=== PATIENT | female | born 2000 | race Caucasian/White ===

== ENCOUNTER 2020-08-09 09:15 | Outpatient (CLI) | payer OTHER | END 2020-08-09 09:32 | disposition home or self-care (01) | LOC: NUCLEAR 09:15 | PROVIDERS: ATTEND General Practice | DX: E05.00 Thyrotoxicosis with diffuse goiter without thyrotoxic crisis or storm (principal) | CPT/HCPCS: 78012; A9531 ==

== ENCOUNTER 2020-08-10 09:56 | Outpatient (CLI) | payer OTHER | END 2020-08-10 10:22 | disposition home or self-care (01) | LOC: NUCLEAR 09:56 | PROVIDERS: ATTEND General Practice | DX: E05.00 Thyrotoxicosis with diffuse goiter without thyrotoxic crisis or storm (principal) | CPT/HCPCS: 78013; A9512 ==

== ENCOUNTER 2024-01-01 08:04 | Outpatient (CLI) | payer OTHER | END 2024-01-01 08:07 | disposition home or self-care (01) | LOC: PRENATAL 08:04 | PROVIDERS: ATTEND Obstetrics & Gynecology Maternal & Fetal Medicine | DX: O36.80X0 Pregnancy with inconclusive fetal viability, not applicable or unspecified (principal); O26.859 Spotting complicating pregnancy, unspecified trimester; Z3A.09 9 weeks gestation of pregnancy ==

== ENCOUNTER 2024-01-16 09:04 | Outpatient (CLI) | payer OTHER | END 2024-01-16 09:07 | disposition home or self-care (01) | LOC: PRENATAL 09:04 | PROVIDERS: ATTEND Obstetrics & Gynecology Maternal & Fetal Medicine | DX: O36.80X0 Pregnancy with inconclusive fetal viability, not applicable or unspecified (principal); Z36.82 Encounter for antenatal screening for nuchal translucency; Z36.9 Encounter for antenatal screening, unspecified; Z14.8 Genetic carrier of other disease; Z3A.11 11 weeks gestation of pregnancy ==

== ENCOUNTER → 2024-05-13 08:22 | Outpatient (CLI) | payer OTHER ==
[~2024-05-13 08:22] MED LIST: HUMULIN N100 UNIT/2 SUBCUTANEO; INSULIN SYRING1 EA29 SUBCUTANEO
== END | disposition home or self-care (01) ==
LOC: PRENATAL 08:22
PROVIDERS: ATTEND Obstetrics & Gynecology Maternal & Fetal Medicine
DX: O26.849 Uterine size-date discrepancy, unspecified trimester (principal); O24.419 Gestational diabetes mellitus in pregnancy, unspecified control; O99.891 Other specified diseases and conditions complicating pregnancy; Z3A.28 28 weeks gestation of pregnancy

== ENCOUNTER 2024-06-10 09:19 | Outpatient (CLI) | payer OTHER | END 2024-06-10 09:20 | disposition home or self-care (01) | LOC: PRENATAL 09:19 | PROVIDERS: ATTEND Obstetrics & Gynecology Maternal & Fetal Medicine | DX: O26.843 Uterine size-date discrepancy, third trimester (principal); O24.419 Gestational diabetes mellitus in pregnancy, unspecified control; O34.03 Maternal care for unspecified congenital malformation of uterus, third trimester; Z3A.32 32 weeks gestation of pregnancy ==

== ENCOUNTER → 2024-07-08 09:03 | Outpatient (CLI) | payer OTHER | END | disposition home or self-care (01) | LOC: PRENATAL 09:03 | PROVIDERS: ATTEND Obstetrics & Gynecology Maternal & Fetal Medicine | DX: O26.849 Uterine size-date discrepancy, unspecified trimester (principal); O36.8199 Decreased fetal movements, unspecified trimester, other fetus; O24.419 Gestational diabetes mellitus in pregnancy, unspecified control; O34.00 Maternal care for unspecified congenital malformation of uterus, unspecified trimester; Z3A.36 36 weeks gestation of pregnancy ==